=== PATIENT | female | born 2000 ===

== ENCOUNTER 2025-01-07 15:19 | Inpatient (IN) | payer OTHER ==
[~2025-01-07] VITALS: Wt 51.0 kg
--- NOTE | 2025-01-07 17:43 | NUR ---
FAMILY CONTACT INFO MOM IS KARYN GRANT [phone], LIVES IN [place] SHE WOULD LIKE TO BE INCLUDED IN THE PATIENTS POC IF PATIENT ALLOWS FOR IT SOUNDED VERY CLEAR MINDED AND CONCERNED FOR THE PATIENT
--- NOTE | 2025-01-07 18:20 | NUR ---
ADMISSION NOTE: PT TO [facility] AT 1653 VIA SECURE TRANSPORT FROM [facility]. INTAKE COMPLETED, 2 RN SKIN CHECK DONE WITH CLAU MANCIA. NO WOUNDS NOTED. BELONGINGS SECURED IN BIN AND SAFE (CELL PHONE) BY WINTER HALL. INTAKE INTERVIEW REVEALS NEW ONSET OF HALLUCINATIONS AND PARANOIA. PT STATES SYMPTOMS BEGAN OVER THE LAST 2-3 MONTHS BUT INCREASED SIGNIFICANTLY OVER THE LAST 3-4 DAYS. PT STATES SHE HAS BEEN HEARING VOICES THAT SAY "SWEET THINGS" AND "NOT SWEET THINGS" TO HER. STATES SOMETIMES THEY TELL HER WHAT TO DO AND SHE DOESN'T LIKE IT. ALSO STATES APPROX 4 DAYS AGO SHE STARTED TO THINK THAT HER ROOMMATE WAS IN THE JUDY "OR AT LEAST KNEW STUFF ABOUT ME SHE SHOULDN'T." REPORTS FEELING LIKE EVERYONE AROUND HER KNOWS HER LIFE OR HER SECRETS. DENIES ANY HISTORY OF TRAUMA/ABUSE/NEGLECT. DOES STATE SHE HAS "PORNOGRAPHY RELATED" TRAUMA. WHEN QUESTIONED FURTHER ABOUT THIS SHE REVEALED IT WAS RELATED TO HER USE OF PORNOGRAPHY, NOT ANY SITUATION OF PARTICIPATING IN THE MAKING OF PORNOGRAPHY. SHE INDICATES SHE FEELS INTENSE SHAME ABOUT THIS. DONTRELL EXPRESSED FEELING CONFUSED AND SCARED ABOUT FEELING HOW SHE FEELS AND HEARING VOICES. TEARFUL THROUGHOUT INTERVIEW. SHE STATES MULTIPLE TIMES "I DON'T KNOW WHY THIS IS HAPPENING." STATES SHE HAS HAD THOUGHTS OF SELF HARM/SUICIDE " LONG I CAN REMEMBER" BUT THEY ARE FLEETING AND SHE HAS HAD NO PLANS TO ACT ON THEM. SHE DOES RELAY AN INCIDENT AT AGE 14 IN WHICH SHE OD'D ON BENADRYL BUT STATES SHE WAS NOT TRYING TO KILL HERSELF, SHE JUST WANTED TO "SLEEP AND NOT WAKE UP." SHE ALSO STATES SHE HAS A HISTORY OF CUTTING SELF A TEENAGER BUT HAS NOT DONE THIS "FOR A LONG TIME." DESCRIBES FREQUENT THC USE VIA VAPE. CASUAL ETOH USE WHICH SHE STATES SHE HAS INCREASED IN THE LAST WEEK RELATED TO SYMPTOMS "BUT ONLY 1-2 BEERS A DAY." DENIES USE OF ANY OTHER STREET DRUGS OR ILLEGAL SUBSTANCES. OTHER CONCERNS EXPRESSED INCLUDE SHAME OVER SPIRITUAL PRACTICES WHICH INCLUDE USING TAROT CARDS AND ASTROLOGY. STATES SHE WAS RAISED A FAITH AND THIS CONFLICTS WITH HER PREVIOUS HELD BELIEFS. SHE ALSO EXPRESSES A FEAR OF NOT BEING ABLE TO CONNECT WITH HER PARENTS. MD AWARE OF PATIENT ARRIVAL AND WILL REVIEW NOTES.
[2025-01-07] MEDS ORDERED: Ibuprofen 600 MG Tab PO PRN (18:35)
[2025-01-07] MEDS ORDERED: HydrOXYzine Pamoate 50 MG Cap PO PRN (18:35)
[2025-01-07] MEDS ORDERED: LORazepam 2 MG Tab PO PRN (18:35)
[2025-01-07] MEDS ORDERED: Haloperidol 5 MG Tab PO PRN (18:35)
[2025-01-07] MEDS ORDERED: Calcium Carbonate 500 MG Tab Chew PO PRN (18:40)
[2025-01-07] MEDS ORDERED: Polyethylene Glycol 3350 17 gm PO PRN (18:40)
[2025-01-07] MEDS ORDERED: Haloperidol Lactate Inj. 5 MG/ML Injection IM PRN (18:40)
[2025-01-07] MEDS ORDERED: Melatonin 3 MG Tab PO PRN (18:40)
[2025-01-07] MEDS ORDERED: Acetaminophen 325 MG TABLET PO PRN (18:40)
[2025-01-07] MEDS ORDERED: Aluminum Hydroxide 320MG/5ML 473 ML PO PRN (18:40)
[2025-01-07] MEDS ORDERED: DiphenhydrAMINE HCl 50 MG Cap PO PRN (18:40)
[2025-01-07] MEDS ORDERED: DiphenhydrAMINE HCl 50 MG/ML 1ML Vial IM PRN (18:40)
[2025-01-07] MEDS ORDERED: SYNTHROID25 M12 PO (18:41)
[2025-01-07] MEDS ORDERED: Ondansetron 4 MG SoluTab MM PRN (18:45)
[2025-01-07] MEDS ORDERED: TraZODone HCl 50 MG Tab PO PRN (18:45)
[2025-01-07] MEDS ORDERED: LORazepam 2 MG/ML 1ML Injection IM PRN (18:45)
[2025-01-07] MEDS ORDERED: OLANZapine ODT 10 MG Tab MM PRN (18:45)
[2025-01-07 19:38] VITALS: BP 121/82
[2025-01-07] MEDS ORDERED: OLANZapine 10 MG Tab PO SCH (21:00)
--- NOTE | 2025-01-08 04:08 | NUR ---
SHIFT SUMMARY PT PRESENT IN MILIEU AT START OF SHIFT. SHE REPORTS AUDITORY HALLUCINATIONS THAT ARE TELLING HER TO KILL HERSELF AND HAS FLEETING THOUGHTS OF SI BUT NO PLAN OR INTENT. INTERNAL STIMULI NOTED AT TIMES. SHE IS PLEASANT AND COOPERATIVE WITH A FLAT AFFECT. SHE WAS HESITANT TO TAKE HER EVENING MEDS. WRITTEN AND VERBAL INFORMATION ON MEDICATIONS GIVEN TO PATIENT AND PT TOOK HER SCHEDULED ZYPREXA AND PRN TRAZODONE. SHE HAS BEEN SLEEPING THROUGHOUT THE NIGHT WITH Q15 MINUTE SAFETY CHECKS DONE.
[2025-01-08 06:26] LABS: CHOL/HDL RATIO 4.3; Cholesterol 225 mg/dL (50-200); HDL Cholesterol 52 mg/dL (>39); Low Density Lipoprotein Chol 156 mg/dL (0-110); Triglycerides 85 mg/dL (30-140); Very Low Density Lipoprot Chol 17 mg/dL (6-28)
[2025-01-08] MEDS ORDERED: Multivitamins 1 Tab PO SCH (09:00)
[2025-01-08 12:32] VITALS: BP 111/81
--- NOTE | 2025-01-08 16:44 | NUR ---
PATIENT ENDORSES SUICIDAL THOUGHTS STATING "i WOULD KILL MYSELF FOR THE GREATER GOOD" BUT DENIES PLAN AND INTENT. SHE WAS UNABLE TO OFFER INSIGHT ON THAT STATEMENT. SHE DENIES HALLUCINATIONS. SHE SPECIFICALLY WAS ASSESSED FOR COMMAND HALLUCINATION AND DENIES. PATIENT HAD A VISITOR (Guicho arteaga), AND WILL HAVE A VISIT TOMORROW WELL. SHE WAS UP RARELY FOR A GROUP, ATE EACH MEAL, AND SLEPT FOR MOST OF THE DAY. SHE HASN'T HAD UNSAFE ACTIONS.
[2025-01-08 19:22] VITALS: BP 107/82
[2025-01-08] MEDS ORDERED: OLANZapine 10 MG Tab PO SCH (21:00)
--- NOTE | 2025-01-09 04:17 | NUR ---
SHIFT SUMMARY PATIENT RELAXING IN SENSORY ROOM AT BEGINNING OF SHIFT. SLOW TO ANSWER QUESTIONS AT TIMES APPEARS TO BE RESPONDING TO INTERNAL STIMULI DENIES AVH. DENIES HI. WHEN ASKED ABOUT SI VERBALIZED "MAY BE A PLAN IN MOTION" WOULD NOT ELABORATE. DENIES URGE TO HARM SELF. AGREES TO ASK STAFF FOR ASSISTANCE IF SI THOUGHTS BECOME MORE INTENSE. COOPERATIVE WITH SCHEDULED MEDICATIONS. PATIENT WORRIED ABOUT BEING TIRED DURING THE DAY. PATIENT APPEARS TO BE SLEEPING WELL T/O NIGHT RESP EVEN AND UNLABORED. CONTINUE TO MONITOR Q15MIN
[2025-01-09] MEDS ORDERED: Levothyroxine Sodium 0.025 MG Tab PO SCH (06:00)
[2025-01-09 08:02] VITALS: BP 111/77
--- NOTE | 2025-01-09 11:18 | NUR ---
PT ENGAGED IN UNIT MILIEU THIS AFTERNOON. SPENT TIME SITTING OUTSIDE, COLORING AND TALKING WITH STAFF. WHILE TALKING IN THE DAY ROOM WITH THIS RN, PT STATED THAT SHE WISHED THAT SHE HAD NOT BEEN EXPOSED TO PORN A CHILD. STATES THAT SHE HAS BEEN ADDICTED TO IT IN THE PAST. SHE THEN STATED THAT SHE WAS WATCHING SOMETHING ONLINE AND SAW A VIDEO OF A PERSON WITH A TODDLER, BECAME TEARFUL AND STOPPED TALKING. SHE SAT IN THE DAY ROOM WATCHING MUSIC VIDEOS ON TV.
--- NOTE | 2025-01-09 17:14 | NUR ---
SHIFT SUMMARY: PT ALERT, ORIENTED AND COOPERATIVE WITH CARE. COMPLIANT WITH MEDICATIONS AND CARE. PT SPENT TIME IN THE DAY ROOM WATCHING TV AND COLORING. PT HAD A VISIT WITH HER GRANDMA WHICH APPEARED TO GO WELL. PT ATTENDED MEALS, ATE 40% OF HER BREAKFAST AND MINIMAL AMOUNT OF HER LUNCH.
[2025-01-09 20:08] VITALS: BP 111/86
--- NOTE | 2025-01-09 22:36 | NUR ---
PT APPEARS TO BE SLEEPING DURING ROUNDING CHECKS PER MHA.
--- NOTE | 2025-01-10 00:05 | NUR ---
Report received from Kierra Kaba RN. Patient currently sleeping. Will continue monitoring every 15 minutes for comfort and safety
--- NOTE | 2025-01-10 05:05 | NUR ---
Patient quiet during snack time, Spent little tme in the TV room prior to going to bed. States feelings related to suicide are now fleeting, and no HI or VH. Still little AH partially related to paranoia about taking medications. Will continue close monitoring every 15 minutes for comfort and safety.
[2025-01-10 08:06] VITALS: BP 106/73
--- NOTE | 2025-01-10 16:21 | NUR ---
SHIFT SUMMARY: PT ALERT, ORIENTED AND COOPERATIVE WITH CARE. DENIES SI, HI AND AVH. STATES THAT SHE IS FEELING BETTER TODAY. SHE STATED THIS AM THAT SHE ISN'T HAVING SUICIDAL THOUGHTS BUT REPORTED THAT SHE IS THINKNG THAT THERE IS SOMETHING YAZDANISM HAPPENIN AND PEOPLE WILL BUT STATES THAT SHE KNOWS THAT THIS ISN'T REAL. PT PARTCIPATED IN THE UNIT MILIEU, TALKING TO PEERS AND STAFF. SPENT TIME IN THE DAY ROOM WATCHING TV. PT ATTENED MEALS AND WAS COMPLIANT WITH MEDICATIONS. HER GRANDMOTHER CAME TO VISIT AND THE VISIT APPEARED TO GO WELL. HER MOTHER CALLED AND HAS SET UP A VISIT WITH GRANDMA AND PATIENT TOMORROW.
[2025-01-10 20:00] VITALS: BP 117/79
--- NOTE | 2025-01-11 05:09 | NUR ---
SHIFT SUMMARY PT ENDORSES SI, W/O A PLAN. DENIES HI, AND VISUAL/TACTILE HALLUCINATIONS. ENDORSES AUDITORY HALLUCINATIONS. PT STATES, "I HEAR MY FAMILIES VOICES IN MY HEAD" AND ALSO HEARS VOICES "OUTSIDE MY HEAD". STATES THE "OUTSIDE" VOICES ARE RARE, SOMETIMES COMMAND HER TO "SIT DOWN AND BE QUIET", BUT DOES NOT TELL HER TO KILL HERSELF. PT APPEARS MUCH MORE BRIGHT AND INTERACTIVE W/ STAFF AND PEERS. ENDORSES PARANOID DELUSIONS AND STATES, "I KNOW THEY'RE PROBABLY NOT REAL". INTERACTING W/ STAFF/PEERS, WATCHED MOVIE IN DAY ROOM. PT AWAKE THIS AM ONCE AND EXPRESSED WORRY THAT HER HANDS WERE GOING TO CATCH ON FIRE TO A. REDIRECTABLE AND WAS SLEEPING/LYING IN BED AFTERWARDS.
[2025-01-11 08:22] VITALS: BP 111/71
--- NOTE | 2025-01-11 17:03 | NUR ---
SHIFT SUMMARY PT AxOx4. PLEASANT AND COOPERATIVE WITH CARE. PT DENIED SI/HI BUT ENDORSED STRUGGLING WITH INTERMITTENT PARANOID DELUSIONS, FOR EXAMPLE SHE REPORTED HER "ROOMMATE WORKS FOR THE [employer]." THIS SHIFT. SHE HAS BEEN FOLLOWING TREATMENT PLAN INCLUDING TAKING MEDICATIONS PRESCRIBED, ATTENDING ALL MILIEU THERAPY GROUPS AND MINGLING APPROPRIATELY WITH STAFF/PEERS. PT HAD VISIT WITH HER MOTHER AND GRANDMOTHER THIS AFTERNOON, WHO LIVE IN [place]. WITH PATIENT'S CONSENT, HER MOTHER, KARYN, WISHES TO CONNECT WITH DC SHERIFF SERGEANT CURRENT PLAN IS FOR EXPECTED DC IN APPROXIMATELY 2 DAYS. MESSAGE WILL BE RELAYED. PT IS CURRENTLY SITTING IN GROUP ROOM, WATCHING A MOVIE. PT DENIES ANY NEEDS AT THIS TIME.
[2025-01-11 20:22] VITALS: BP 114/82
--- NOTE | 2025-01-12 04:39 | NUR ---
SHIFT SUMMARY PT IN GROUP ROOM WATCHING TV WITH PEERS AT START OF SHIFT. SHE IS CALM, AND COOPERATIVE. SHE REPORTS FLEETING THOUGHTS OF SI, BUT HAS NO PLANS OR INTENT. PT STATES SHE HAS AUDITORY HALLUCINATIONS IN WHICH SHE HEARS VOICES MUMBLING. SHE STATES SHE IS PARANOID AND THINKS PEOPLE ARE TRYING TO KILL HER WITH FIRE. SHE WAS COMPLIANT WITH EVENING MEDICATION, HAD EVENING SNACK AND WENT TO BED AFTER WATCHING TV. SHE HAS BEEN SLEEPING/RESTING THROUGHOUT THE NIGHT. Q15 MINUTE CHECKS TO CONTINUE PER PT SAFETY/PROTOCOL.
--- NOTE | 2025-01-12 11:30 | NUR ---
IMPORTANT DISCHARGE INFORMATION PATIENT WILL BE DISCHARGED, REQUESTED BACK TO HER MOTHER'S CARE = KARYN JUANITA FAMILY WILL BE TRAVELING BACK TO [place] FOR CONTINUED CARE/TREATMENT. PHARMACY: [facility]
--- NOTE | 2025-01-12 11:49 | NUR ---
NURSE NOTE REPORT GIVEN TO CLAU SCOTT.
[2025-01-12] MEDS ORDERED: HYDPAM50 PO (11:58)
[2025-01-12] MEDS ORDERED: MELA3 PO (11:59)
[2025-01-12] MEDS ORDERED: MULVITA PO (12:00)
[2025-01-12] MEDS ORDERED: OLAN10 PO (12:00)
[2025-01-12] MEDS ORDERED: TRAZ50 PO (12:01)
--- NOTE | 2025-01-12 13:22 | NUR ---
dISCHARGE [id number] PATIENT WAS PICKED UP BY MOM AND GRANDMOTHER TODAY, POST DISCHARGE. PATIENT IS GOING TO GO TO [place]. SHE WAS GIVEN CRISIS NUMBERS AND INFOAMTION TO SIGN UP FOR [facility]. PATIENT SIGNED DISCHARGE PAPERWORK. MEDICATION SCRIPTS WERE FAXED TO [facility]. EDUCATION ON ZYPREXA, TRANZODONE WERE PRINTED FOR THE PATIENT. SHE DENIES ANY THOUGHTS OF HARMING SELF/DENIES SUICIDAL THOUGHTS AT TIME OF DISCHARGE. BELONINGS WERE SINGED FOR BY PATIENT THEY WERE RETURNED.
== END 2025-01-12 13:19 | disposition home or self-care (01) | DRG 885 ==
LOC: BHU 15:19
PROVIDERS: ADMIT Psychiatry & Neurology Psychiatry
PROC: GZHZZZZ Group Psychotherapy (ICD-10-PCS; principal; 2025-01-08)
DX: F29 Unspecified psychosis not due to a substance or known physiological condition (principal); F22 Delusional disorders; F12.90 Cannabis use, unspecified, uncomplicated
CPT/HCPCS: 36415; 80061; 83036; A9270